=== PATIENT | male | born 1975 | race Caucasian/White ===

== ENCOUNTER → 2017-03-18 | Outpatient (CLI) | payer OTHER ==
[~2017-03-18] MED LIST: BUPIVACAINE MPF 0.25% 10 ML VIAL. ONE; DEXAMETHASONE SOD PHOS 20 MG/5 ML VIAL. ONE; IOHEXOL 300 MG/ML 50 ML VIAL. ONE; LIDOCAINE 1% PF 30 ML VIAL. ONE
== END | disposition home or self-care (01) ==
LOC: SURG 12:28
PROVIDERS: ATTEND Anesthesiology Pain Medicine
DX: M54.16 Radiculopathy, lumbar region (principal); I10 Essential (primary) hypertension; K21.9 Gastro-esophageal reflux disease without esophagitis; Z98.890 Other specified postprocedural states
CPT/HCPCS: 64483; 64484; J1100; J2001; J3490; Q9967

== ENCOUNTER → 2017-07-29 | Outpatient (CLI) | payer OTHER ==
[~2017-07-29] MED LIST changes: +AMLO10TA2 PO; -BUPIVACAINE MPF 0.25% 10 ML VIAL. ONE; +BUPIVACAINE MPF 0.5% 30 ML VIAL. ONE; +CELE200C PO; +CYCL-331 PO; -DEXAMETHASONE SOD PHOS 20 MG/5 ML VIAL. ONE; +HYDR1TAB16 PO; -IOHEXOL 300 MG/ML 50 ML VIAL. ONE; +LAMO150T3 PO; +PANT40TA5 PO
== END | disposition home or self-care (01) ==
LOC: SURG 09:09
PROVIDERS: ATTEND Anesthesiology Pain Medicine
DX: M47.816 Spondylosis without myelopathy or radiculopathy, lumbar region (principal); M54.5 Low back pain; I10 Essential (primary) hypertension; K21.9 Gastro-esophageal reflux disease without esophagitis; Z98.890 Other specified postprocedural states
CPT/HCPCS: 64493; 64494; 64495; 99213; J2001; J3490

== ENCOUNTER → 2017-08-13 | Outpatient (CLI) | payer OTHER ==
[~2017-08-13] MED LIST changes: +BUPIVACAINE MPF 0.25% 10 ML VIAL. ONE; -BUPIVACAINE MPF 0.5% 30 ML VIAL. ONE; +DEXAMETHASONE SOD PHOS 4 MG/ML VIAL ONE; +MIDAZOLAM HCL PF 2 MG/2 ML VIAL. ONE
[2017-08-13] MEDS: IV RINGERS SOLUTION,LACTATED 1,000 ML IV SCH (08:14)
[2017-08-13 09:50] VITALS: BP 153/100
== END | disposition home or self-care (01) ==
LOC: SURG 07:29
PROVIDERS: ATTEND Anesthesiology Pain Medicine
DX: M47.816 Spondylosis without myelopathy or radiculopathy, lumbar region (principal); M19.90 Unspecified osteoarthritis, unspecified site; F17.210 Nicotine dependence, cigarettes, uncomplicated; Z79.899 Other long term (current) drug therapy; Z79.891 Long term (current) use of opiate analgesic
CPT/HCPCS: 64635; 64636; J1100; J2001; J2250; J3010; J3490; J7120; 99152

== ENCOUNTER → 2017-09-02 | Outpatient (CLI) | payer OTHER ==
[~2017-09-02] MED LIST changes: +IV RINGERS SOLUTION,LACTATED 1,000 ML IV SCH; +PRED20TA PO
[2017-09-02 09:34] VITALS: BP 163/108
== END | disposition home or self-care (01) ==
LOC: SURG 07:34
PROVIDERS: ATTEND Anesthesiology Pain Medicine
DX: M47.816 Spondylosis without myelopathy or radiculopathy, lumbar region (principal); M51.37 Other intervertebral disc degeneration, lumbosacral region; Z72.89 Other problems related to lifestyle; Z98.890 Other specified postprocedural states
CPT/HCPCS: 64635; 64636; 99152; 99153; J1100; J2001; J2250; J3010; J3490; J7120

== ENCOUNTER 2017-09-16 18:57 | Emergency (ER) | payer OTHER ==
[~2017-09-16] VITALS: Ht 193 cm; Wt 133.8 kg
[~2017-09-16 18:57] MED LIST changes: -BUPIVACAINE MPF 0.25% 10 ML VIAL. ONE; -DEXAMETHASONE SOD PHOS 4 MG/ML VIAL ONE; -IV RINGERS SOLUTION,LACTATED 1,000 ML IV SCH; -LIDOCAINE 1% PF 30 ML VIAL. ONE; -MIDAZOLAM HCL PF 2 MG/2 ML VIAL. ONE; -PRED20TA PO
[2017-09-16 19:00] VITALS: BP 150/103
[2017-09-16] MEDS ORDERED: KETOROLAC 60 MG/2 ML VIAL. IM ONE (20:00)
[2017-09-16] MEDS ORDERED: DEXAMETHASONE SOD PHOS 10 MG/ML VIAL IM ONE (20:00)
[2017-09-16] MEDS ORDERED: ORPHENADRINE CITRATE 60 MG/2 ML VIAL. IM ONE (20:00)
[2017-09-16] MEDS ORDERED: oxyCODONE/APAP 10/325 1 TAB TABLET PO ONE (20:00)
[2017-09-16] MEDS ORDERED: PRED20TA PO (20:10)
--- NOTE | 2017-09-16 20:11 | PHYS DOC ---
Adult General Chief Complaint Chief Complaint: BACK PAIN OR INJURY HPI HPI 42-year-old male with a history of chronic low back problems including disc problems never treated surgically. Patient recently had radio frequency therapy and states that over the last couple days he is of SEVERE low back pain and is having difficulty functioning. He describes that he has anti-inflammatory medication and Vicodin but he does not taken it because 'it doesn't work at all. ' Patient has taken no narcotics at home. He reports normal bowel and bladder habits. No numbness or weakness of his extremities however it is painful to ambulate. Patient walks with a cane. Review of Systems Review of Systems Constitutional: Denies fever or chills [] Eyes: Denies change in visual acuity, redness, or eye pain [] HENT: Denies nasal congestion or sore throat [] Respiratory: Denies cough or shortness of breath [] Cardiovascular: No additional information not addressed in HPI [] GI: Denies abdominal pain, nausea, vomiting, bloody stools or diarrhea [] : Denies dysuria or hematuria [] Musculoskeletal: Denies back pain or joint pain [] Integument: Denies rash or skin lesions [] Neurologic: Denies headache, focal weakness or sensory changes [] Endocrine: Denies polyuria or polydipsia [] All other systems were reviewed and found to be within normal limits, except as documented in this note. Current Medications Current Medications Current Medications Medications (Trade) Dose Ordered Sig/[facility] Start Time Stop Time Status Last Admin Dose Admin Dexamethasone Sodium Phosphate (Decadron) 10 mg 1X ONCE 09/16/17 20:00 09/16/17 20:01 DC Ketorolac Tromethamine (Toradol) 60 mg 1X ONCE 09/16/17 20:00 09/16/17 20:01 DC Orphenadrine Citrate (Norflex) 60 mg 1X ONCE 09/16/17 20:00 09/16/17 20:01 DC Oxycodone/ Acetaminophen (Percocet 10/325) 1 tab 1X ONCE 09/16/17 20:00 09/16/17 20:01 DC Allergies Allergies Allergies Coded Allergies Type Severity Reaction Last Updated Verified No Known Drug Allergies 09/02/17 No Physical Exam Physical Exam Obese 42-year-old male uncomfortable appearing but alert communicative cooperative with lower extremity neurologic exam which is nonfocal. No spinal tenderness. Right lumbar paraspinal soft tissue tenderness and spasm. No saddle anesthesia. Neurovascularly intact bilateral lower extremities. Negative straight leg raise bilateral. Constitutional: Well developed, well nourished, no acute distress, non-toxic appearance. [] HENT: Normocephalic, atraumatic, bilateral external ears normal, oropharynx moist, no oral exudates, nose normal. [] Eyes: PERRLA, EOMI, conjunctiva normal, no discharge. [] Neck: Normal range of motion, no tenderness, supple, no stridor. [] Cardiovascular:Heart rate regular rhythm, no murmur [] Lungs & Thorax: Bilateral breath sounds clear to auscultation [] Abdomen: Bowel sounds normal, soft, no tenderness, no masses, no pulsatile masses. [] Skin: Warm, dry, no erythema, no rash. [] Back: As above no CVA tenderness. [] Extremities: No tenderness, no cyanosis, no clubbing, ROM intact, no edema. [] Neurologic: Alert and oriented X 3, normal motor function, normal sensory function, no focal deficits noted. [] Psychologic: Patient is angry and demanding EKG EKG [] Radiology/Procedures Radiology/Procedures [] Course & Med Decision Making Course & Med Decision Making Pertinent Labs and Imaging studies reviewed. (See chart for details) Signs and symptoms consistent with exacerbation of chronic low back pain with muscle spasm. No evidence of clinical cauda equina syndrome. Patient is very clear he has normal bowel and bladder habits. He made it clear that his expectation is to get narcotics stronger than his Vicodin which he reports having but not taking because it does not provide him total relief. Steroids, antispasmodic, anti-inflammatory medication administered. Percocet given however patient stated it "isn't going to do anything." Despite this treatment and narcotic analgesia administered patient and his were very demanding and angry that they were not getting an MRI as they desired. Patient were to follow up with his primary care physician for reevaluation and to arrange outpatient MRI if indicated on reevaluation as an outpatient. No further workup or treatment is indicated patient and agree with outpatient follow-up. Dragon Disclaimer Dragon Disclaimer This electronic medical record was generated, in whole or in part, using a voice recognition dictation system. Departure Departure: Impression: Primary Impression: Low back pain Additional Impression: Back muscle spasm Disposition: 01 HOME, SELF-CARE Condition: IMPROVED Referrals: PURVI MENEZES MD (PCP) Patient Instructions: Back Pain, Adult Additional Instructions: You are experiencing an attack of low back pain and back spasm. You been given a shot of muscle relaxant as well as anti-inflammatory medication, and a steroid injection as well. Take an anti-inflammatory medication at home in the appropriate dose and frequency, one option is ibuprofen 800 mg every 6 hours. Take Flexeril 10 mg 3 times a day as previously prescribed as needed for spasm. Finish prednisone as prescribed once a day for 5 days. This is a steroid and will contribute a strong anti-inflammatory effect. Lastly, use your Vicodin as previously prescribed as needed. Follow-up with your doctor tomorrow for reevaluation and to discuss and arrange continued outpatient pain control going forward. Scripts Prednisone (PREDNISONE) 20 Mg Tablet 60 MG PO DAILY for 5 Days, #15 TAB Prov: ANI AGUIRRE MD 09/16/17 Problem Qualifiers ANI AGUIRRE MD Sep 16, 2017 20:11
== END 2017-09-16 20:32 | disposition home or self-care (01) ==
LOC: ER 18:57
DX: M62.830 Muscle spasm of back (principal); M54.5 Low back pain
CPT/HCPCS: 96372; 99284; J1100; J1885; J2360